=== PATIENT | male | born 1945 | race Caucasian/White ===

== ENCOUNTER 2019-08-28 10:47 | Emergency (ER) | payer MEDICARE, MEDICAID ==
[~2019-08-28] VITALS: Ht 175.3 cm; Wt 63.2 kg
[~2019-08-28 10:47] MED LIST: CLIN-90 PO; DIPH25CA83 PO
[2019-08-28 10:54] VITALS: BP 120/75
[2019-08-28] MEDS ORDERED: HYDR28CR14 TOP (11:46)
[2019-08-28] MEDS ORDERED: CERA453C2 TOP (11:46)
== END 2019-08-28 11:59 | disposition home or self-care (01) ==
LOC: ER 10:49
DX: L30.9 Dermatitis, unspecified (principal); F10.99 Alcohol use, unspecified with unspecified alcohol-induced disorder; Z60.2 Problems related to living alone; Z59.0 Homelessness; Z79.899 Other long term (current) drug therapy; Y90.9 Presence of alcohol in blood, level not specified
CPT/HCPCS: 99282

== ENCOUNTER 2020-03-13 10:49 | Emergency (ER) | payer MEDICARE, MEDICAID ==
[~2020-03-13] VITALS: Ht 180.3 cm; Wt 68.2 kg
[~2020-03-13 10:49] MED LIST changes: +CERA453C2 TOP; -CLIN-90 PO; +CLIN-97 PO; +HYDR28CR14 TOP
[2020-03-13 10:59] VITALS: BP 92/61
[2020-03-13] MEDS ORDERED: IBUP-1985 PO (11:56)
== END 2020-03-13 12:10 | disposition home or self-care (01) ==
LOC: ER 10:50
DX: K46.9 Unspecified abdominal hernia without obstruction or gangrene (principal); Z72.89 Other problems related to lifestyle; Z60.2 Problems related to living alone; Z59.0 Homelessness; Z79.899 Other long term (current) drug therapy
CPT/HCPCS: 99282